=== PATIENT | male | born 1995 | race Caucasian/White ===

== ENCOUNTER 2021-07-10 14:51 | Emergency (ER) | payer OTHER ==
[~2021-07-10] VITALS: Ht 182 cm; Wt 90.9 kg
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
[2021-07-10] MEDS ORDERED: ACETAMINOPHEN 500 MG TAB (TYLENOL) PO ONE (15:15)
--- NOTE | 2021-07-10 15:30 | Diagnostic Imaging Report ---
INDICATION: Knee pain. EXAMINATION: Left knee from 07/10/2021. FINDINGS: Three views of the knee. FINDINGS: There is no evidence for an acute fracture or dislocation. The joint spaces are well maintained. There is no significant soft tissue swelling. IMPRESSION: No acute process. Dictated by: Dictated on workstation # [id number]
[2021-07-10 16:01] VITALS: BP 128/65
== END 2021-07-10 16:01 | disposition home or self-care (01) ==
LOC: ER 14:54
DX: S89.92XA Unspecified injury of left lower leg, initial encounter (principal); Z72.0 Tobacco use; X50.0XXA Overexertion from strenuous movement or load, initial encounter
CPT/HCPCS: 73562